=== PATIENT | female | born 1930 | race Caucasian/White ===

== ENCOUNTER 2017-01-10 08:25 | Outpatient (CLI) | payer OTHER | END 2017-01-10 20:44 | disposition home or self-care (01) | LOC: SMA 08:25 | PROVIDERS: ATTEND Family Medicine | DX: C50.919 Malignant neoplasm of unspecified site of unspecified female breast (principal); Z90.11 Acquired absence of right breast and nipple | CPT/HCPCS: G0204; G0206 ==